=== PATIENT | female | born 1965 | race Caucasian/White ===

== ENCOUNTER → 2019-02-10 | Outpatient (CLI) | payer OTHER ==
--- NOTE | 2019-02-10 16:49 | Diagnostic Imaging Report ---
EXAMINATION: Lumbosacral spine at 3:49 p.m. INDICATION: Low back pain. FINDINGS: Five views were obtained. There are no prior studies available for comparison. On the AP view there is levoscoliosis of the lower lumbar spine. There has also been a prior posterior fusion at L4, L5 and S1. The orthopedic hardware seems to be in good position. There are also neurostimulator wires extending from the skin surface to the posterior aspect of L4. There is fairly severe degenerative disc and bony disease at the L3-L4 level. There is at least moderate degenerative disease at L1-L2 and L2-L3 as well. There is no fracture or acute bony abnormality evident. There is no sign of a paraspinal mass. IMPRESSION: 1. There is no evidence for an acute bony abnormality. 2. There are postsurgical and degenerative changes involving the spine as described above. Dictated by: Dictated on workstation # [id number]
== END ==
LOC: RAD 15:33
PROVIDERS: ATTEND Anesthesiology Pain Medicine
DX: M47.27 Other spondylosis with radiculopathy, lumbosacral region (principal); M41.86 Other forms of scoliosis, lumbar region; M51.16 Intervertebral disc disorders with radiculopathy, lumbar region; M89.9 Disorder of bone, unspecified; Z98.1 Arthrodesis status
CPT/HCPCS: 72110